=== PATIENT | male | born 1980 | race American Indian/Alaskan Native ===

== ENCOUNTER 2018-10-05 18:20 | Emergency (ER) | payer MEDICAID ==
[2018-10-05 18:21] VITALS: BMI 22.4
--- NOTE | 2018-10-05 19:30 | C.PDOC ---
History Of Present Illness 37 year old male presents to the ED requesting alcohol detox. Patient is a chronic alcoholic, admits to drinking today [employer]. Patient denies SI/HI, hallucinations, injury, fall, trauma. Time Seen by Provider: 10/05/18 19:25 Chief Complaint (Nursing): Substance Abuse History Per: Patient History/Exam Limitations: intoxication Onset/Duration Of Symptoms: Hrs Current Symptoms Are (Timing): Still Present Suicide/Self Injury Attempted (Context): None Modifying Factor(s): Alcohol Associated Symptoms: denies: Depression, Suicidal Thoughts, Suicidal Plan Recent travel outside of the [place]: No Additional History Per: Patient Past Medical History Reviewed: Historical Data, Nursing Documentation, Vital Signs Vital Signs: Last Vital Signs Temp 98.9 F 10/05/18 18:23 Pulse 98 H 10/05/18 18:23 Resp 15 10/05/18 18:23 BP 152/96 H 10/05/18 18:23 Pulse Ox 97 10/05/18 18:23 - Medical History PMH: No Chronic Diseases Surgical History: No Surg Hx Family History: States: Unknown Family Hx - Social History Hx Alcohol Use: Yes Hx Substance Use: Yes (last use earlier) Review Of Systems Constitutional: Negative for: Fever, Chills Cardiovascular: Negative for: Chest Pain Respiratory: Negative for: Shortness of Breath Gastrointestinal: Negative for: Nausea, Vomiting, Abdominal Pain Skin: Negative for: Rash Psych: Negative for: Depression, Suicidal ideation Physical Exam - Physical Exam Appears: Non-toxic, No Acute Distress Skin: Normal Color, Warm, Dry Head: Atraumatic, Normacephalic Eye(s): bilateral: Normal Inspection Neck: Normal ROM, Supple Chest: Symmetrical Cardiovascular: Rhythm Regular Respiratory: Normal Breath Sounds, No Rales, No Rhonchi, No Wheezing Gastrointestinal/Abdominal: Soft, No Tenderness, No Guarding, No Rebound Extremity: Normal ROM, No Tenderness, No Swelling Neurological/Psych: Oriented x3, Normal Speech, Normal Cognition Gait: Steady ED Course And Treatment O2 Sat by Pulse Oximetry: 97 (ON RA) Pulse Ox Interpretation: Normal Reevaluation Time: 19:29 Reassessment Condition: Unchanged (stable, coherent) - Physician Consult Information Outcome Of Conversation: 89: d/w Crisis, no detox available, will give opt resources Medical Decision Making Medical Decision Making: persistent alcohol abuse, no SI/HI approx 14 beers/day (12 oz equivelents) Disposition Doctor Will See Patient In The: Office Counseled Patient/Family Regarding: Studies Performed, Diagnosis - Disposition Referrals: Alcoholics Anonymous [Outside] [facility] [Outside] [facility] [Outside] [facility] [Outside] [facility] [Outside] Disposition: HOME/ ROUTINE Disposition Time: 19:30 Condition: GOOD Additional Instructions: seek outpatient pre-screening for alcohol detox programs Seek AA outpatient follow-up as directed. Instructions: Alcohol Use - When Is Drinking a Problem? Forms: [facility] ([place]) - Clinical Impression Clinical Impression: Alcohol abuse - Scribe Statement The provider has reviewed the documentation as recorded by the Scribe Carlos Ruth All medical record entries made by the Scribe were at my direction and personally dictated by me. I have reviewed the chart and agree that the record accurately reflects my personal performance of the history, physical exam, medical decision making, and the department course for this patient. I have also personally directed, reviewed, and agree with the discharge instructions and disposition.
[2018-10-05 19:48] VITALS: BP 146/90; PULSE 90; RESP 20; TEMP 98.1
[2018-10-05 23:09] VITALS: O2SAT 97
== END 2018-10-05 19:54 | disposition home or self-care (01) ==
LOC: C.ER 18:20
DX: F10.10 Alcohol abuse, uncomplicated (principal)